=== PATIENT | female | born 1995 | race Two or more races ===

== ENCOUNTER 2017-03-08 08:06 | Emergency (ER) | payer OTHER ==
--- NOTE | 2017-03-08 08:11 | PDOC ---
History of Present Illness - General Stated Complaint: 8WKS PAIN Time Seen by Provider: 03/08/17 08:07 - History of Present Illness Initial Comments: 03/08/17 08:22 21 yo with h/o HTN, and asthma, who presents with epigatric pain. Pt. reports sharp, stable, unremitting, substernal pain with radiation to back at 0300. Endorses dark color stools for past 1 month. Started on Iron supplementation for anemia 1 week ago. Denies h/o PUD, UGI bleed, endosocpy. Last BM this AM with dark color. Denies NSAID use. + Nausea without vomiting, and tenesmus. + Denies vaginal bleeding, dysuria, hematuira, flank pain, diarrhea, constipation, fevers/chills, chest pain, SOB, lightheadedness, vertigo. Now homeless within 12 hours. [facility] visit 2 months ago for confirmation. Does not recall LMP. Reports h/o irregular menstrual cycles. Currently without [facility] physician. Denies alcohol, tobacco, or illicit drug use. Past History - Past Medical History Allergies/Adverse Reactions: Allergies Allergy/AdvReac Type Severity Reaction Status Date / Time broccoli Allergy Verified 03/08/17 08:15 raspberry [Raspberry] Allergy Swelling Verified 03/08/17 08:15 shellfish derived Allergy Verified 03/08/17 08:15 Home Medications: Ambulatory Orders Vit #108/Iron/FA [ One Tablet] 1 each PO DAILY 10/12/15 Diabetes: Yes (GESTATIONAL) HTN: Yes () Psychiatric Problems: Yes (anxiety, depression ptsd) - Reproductive History (#): 1 - Immunization History Immunization Up to Date: Yes - Suicide/Smoking/Psychosocial Hx Smoking History: Never smoked Have you smoked in the past 12 months: Yes Number of Cigarettes Smoked Daily: 10 'Breaking Loose' booklet given: 04/09/13 Hx Alcohol Use: No Drug/Substance Use Hx: No Substance Use Type: None Review of Systems - Review of Systems Comments:: 03/08/17 08:52 GENERAL/CONSTITUTIONAL: No fever or chills. No weakness. HEAD, EYES, EARS, NOSE AND THROAT: No change in vision. No ear pain or discharge. No sore throat.- CARDIOVASCULAR: No chest pain or shortness of breath RESPIRATORY: No cough, wheezing, or hemoptysis. GASTROINTESTINAL: + Abdominal pain and nausea, without vomiting. No diarrhea or constipation. GENITOURINARY: No dysuria, frequency, or change in urination. MUSCULOSKELETAL: No joint or muscle swelling or pain. No neck or back pain. SKIN: No rash NEUROLOGIC: No headache, vertigo, loss of consciousness, or change in strength/ sensation. ENDOCRINE: No increased thirst. No abnormal weight change HEMATOLOGIC/LYMPHATIC: + anemia, No easy bleeding, or history of blood clots. ALLERGIC/IMMUNOLOGIC: No hives or skin allergy. *Physical Exam - Physical Exam Comments: 03/08/17 08:52 GENERAL: Awake, alert, and fully oriented, in no acute distress HEAD: No signs of trauma, normocephalic, atraumatic EYES: PERRLA, EOMI, sclera anicteric, conjunctiva clear ENT:Hearing grossly normal, nares patent, oropharynx clear without exudates. Moist mucosa NECK: Normal ROM, supple, no lymphadenopathy, JVD, or masses LUNGS: No distress, speaks full sentences, clear to auscultation bilaterally HEART: Regular rate and rhythm, normal S1 and S2, no murmurs, rubs or gallops, peripheral pulses normal and equal bilaterally. ABDOMEN: Soft, + substernal ttp. normoactive bowel sounds. No guarding, no rebound. No masses. Neg plata sign. Neg [place] ttp. Pelvic exam: Normal appearing external genitalia. Cervical os closed with erythematous appearing external os. Absent bleeding. + White discharge. Neg CMT on bimanual exam. EXTREMITIES : Normal inspection, Normal range of motion, no edema. No clubbing or cyanosis. SKIN: Warm, Dry, normal turgor, no rashes or lesions noted. ED Treatment Course - LABORATORY CBC & Chemistry Diagram: 03/08/17 08:40 03/08/17 08:40 Medical Decision Making - Medical Decision Making 03/08/17 09:13 21 yo with h/o HTN, and asthma, who presents with acute onset of sharp , stable, unremitting, epigastria pain with radiation to back at 0300. Endorses dark color stools for past 1 month. Started on Iron supplementation for anemia 1 week ago. Denies h/o PUD, UGI bleed, endosocpy. Last BM this AM with dark color. Denies NSAID use. + Nausea without vomiting, and tenesmus. + Denies vaginal bleeding, dysuria, hematuria, flank pain, diarrhea, constipation , fevers/chills, chest pain, SOB, lightheadedness, vertigo. Now homeless within 12 hours. [facility] visit for [facility] care. No [facility] physician. Does not recall LMP. Reports h/o irregular menstrual cycles. Denies alcohol, tobacco, or illicit drug use. Physical exam with substernal ttp, and unremarkable pelvic exam. Patient history consistent for UGI bleed, given dark colored stools and recent iron requirement. Will obtain KYAW. Also consider ectopic n setting of abdominal pain in . Cholelithiasis vs. choleycystitis ( less likely). ED Course: CBC, CMP, Lipase, BHCG, FOBT UA Ranitidine 03/08/17 09:24 FOBT: Neg 03/08/17 09:24 UA: Neg HC CBC/CMP: Unremarkable 03/08/17 10:49 Janeyanitha Acharya at bedside during pelvic exam. 03/08/17 11:00 Transvaginal U/S: Single intrauterine gestation 7w1d , FHR of 137. Absent choleycystitis, CBD. Patient is stable for D/c with strict return precautions. Will advise to f/u with [facility] and establish care. 03/08/17 11:08 *DC/Admit/Observation/Transfer Diagnosis at time of Disposition: Abdominal pain affecting - Discharge Dispostion Disposition: HOME Condition at time of disposition: Stable Admit: No - Referrals Referrals: Domi Frank [Primary Care Provider] - - Patient Instructions Printed Discharge Instructions: DI for Abdominal Pain -- Early Additional Instructions: Please return to the emergency department with any new or worsening symptoms or concerns. Please follow up with [facility] within the next 1 week. - Post Discharge Activity - Attestations Physician Attestion: 03/08/17 11:04 I attest to the documentation in this note.
[2017-03-08 08:20] VITALS: BP 105/57; PULSE 95; TEMP 98.2; BMI 38.0
[2017-03-08] MEDS ORDERED: SODIUM CHLORIDE 1,000 ML IV STA (08:35)
[2017-03-08] MEDS ORDERED: FAMOTIDINE IV 20 MG/12 ML VIAL IVPUSH SCH (08:45)
[2017-03-08] MEDS ORDERED: FAMOTIDINE 20 MG/50 ML IVPB 20 MG/50 ML MG IVPB ONE (08:58)
[2017-03-08 08:59] LABS: BASOPHIL 0.3 % (0-2.0); EOSINOPHIL 0.9 % (0-4.5); MCH 31.9 pg (25.7-33.7); MCHC 34.5 g/dl (32.0-36.0); MEAN CELL VOLUME 92.6 fl (80-96); MEAN PLT VOLUME 8.5 fl (7.5-11.1); NEUTROPHILS 74.7 % (42.8-82.8); PLATELET COUNT 233 K/MM3 (134-434); RDW 12.8 % (11.6-15.6); WHITE BLOOD COUNT 10.5 K/mm3 (4.0-10.0)
[2017-03-08 09:00] LABS: URINE APPEARANCE SLCLOUDY; URINE BILIRUBIN NEGATIVE (NEGATIVE); URINE BLOOD NEGATIVE (NEGATIVE); URINE COLOR YELLOW; URINE GLUCOSE (UA) NEGATIVE (NEGATIVE); URINE KETONE NEGATIVE (NEGATIVE); URINE NITRITE NEGATIVE (NEGATIVE); URINE PROTEIN NEGATIVE (NEGATIVE); URINE UROBILINOGEN NEGATIVE mg/dL (0.2-1.0)
[2017-03-08] MEDS ORDERED: FAMOTIDINE IV 20 MG/12 ML VIAL IVPUSH ONE (09:00)
--- NOTE | 2017-03-08 09:14 | PDOC ---
Attending Attestation - Resident Resident Name: Gabriel Atwood - ED Attending Attestation I have performed the following: I have examined & evaluated the patient, The case was reviewed & discussed with the resident, I agree w/resident's findings & plan, Exceptions are as noted - HPI HPI: 03/08/17 09:11 21-year-old female recently confirmed at [facility] (formerly [facility]) unknown LMP because of history of irregular menses, reported history of anemia only ever require transfusions with her last delivery in 2015, started on iron one week ago because of presumed anemia in now presents with epigastric discomfort since 3 AM, ate Greek toast around midnight. Constant since onset, no vomiting or diarrhea, no cardiopulmonary complaints, reports two -month history of dark stool but no history of known gastritis/PUD or endoscopy. No excessive NSAID or alcohol use, no pelvic cramping or vaginal bleeding. - Physicial Exam PE: 03/08/17 09:12 Vital signs normal Well-appearing and ambulating Epigastric discomfort to palpation without guarding or rebound, radiates slightly to the right upper quadrant. No CVA tenderness. No suprapubic tenderness - Medical Decision Making 03/08/17 09:13 Patient seen and evaluated with the resident. I agree with the overall evaluation, assessment, and management with the following summary of visit: 21-year-old female unknown LMP with epigastric discomfort, no peritoneal findings on exam. Presentation could be most consistent with gastritis, rule out gallstones. Rule out ectopic as she has not had [facility] evaluation to date, otherwise no [employer] complaints or findings. Labs, urinalysis Right upper quadrant and pelvic ultrasound Antacid Reassess
[2017-03-08 09:30] LABS: ALBUMIN 3.6 g/dl (3.4-5.0); ANION GAP 7 (8-16); BILIRUBIN,TOTAL 0.2 mg/dL (0.2-1.0); CALCIUM 8.2 mg/dL (8.5-10.1); CO2 25 mmol/L (21-32); CREATININE 0.5 mg/dL (0.55-1.02); GLUCOSE,RANDOM 98 mg/dL (74-106); SGOT/AST 15 U/L (15-37); SGPT/ALT 29 U/L (12-78); TOT PROT 7.3 g/dl (6.4-8.2)
[2017-03-08 09:31] LABS: ALK PHOS 56 U/L (45-117)
[2017-03-08 17:54] LABS: URINE LEUK ESTERASE Negative (NEGATIVE)
== END 2017-03-08 12:13 | disposition home or self-care (01) ==
LOC: JER 08:06
PROC: 3E0337Z Introduction of Electrolytic and Water Balance Substance into Peripheral Vein, Percutaneous Approach (ICD-10-PCS; principal; 2017-03-08)
PROC: 3E033GC Introduction of Other Therapeutic Substance into Peripheral Vein, Percutaneous Approach (ICD-10-PCS; 2017-03-08)
DX: O26.891 Other specified pregnancy related conditions, first trimester (principal); R10.84 Generalized abdominal pain; O99.011 Anemia complicating pregnancy, first trimester; Z3A.01 Less than 8 weeks gestation of pregnancy
CPT/HCPCS: 36415; 76705-TC; 76817-TC; 80053; 81003; 82272; 83690; 84702; 85025; 86850; 86900; 86901; 96361; 96374; 99282-25

== ENCOUNTER 2017-05-03 11:48 | Emergency (ER) | payer OTHER ==
[2017-05-03 12:28] VITALS: BP 109/69; PULSE 95; TEMP 98.6; BMI 41.1
[2017-05-03] MEDS ORDERED: ACETAMINOPHEN 325 MG TABLET (FP) PO ONE (13:27)
[2017-05-03] MEDS ORDERED: ACETAMINOPHEN 325 MG TABLET (FP) ONE (13:30)
--- NOTE | 2017-05-03 13:32 | PDOC ---
History of Present Illness - General Chief Complaint: Injury Stated Complaint: CHEST PAIN Time Seen by Provider: 05/03/17 13:26 History Source: Patient Exam Limitations: No Limitations - History of Present Illness Initial Comments: 05/03/17 14:08 21 yr female with c/o pain to her sternal area after the door that she opened was broke and hit her in the chest. no sob no chest pain, pt states she is 15 weeks . Occurred: reports: just prior to arrival Severity: reports: mild Pain Location: reports: chest Method of Injury: Yes: direct blow Past History - Past Medical History Allergies/Adverse Reactions: Allergies Allergy/AdvReac Type Severity Reaction Status Date / Time broccoli Allergy Verified 05/03/17 12:24 raspberry [Raspberry] Allergy Swelling Verified 05/03/17 12:24 shellfish derived Allergy Verified 05/03/17 12:24 Home Medications: Ambulatory Orders Vit 108/Iron/Folic AC [ One Tablet] 1 each PO DAILY 10/12/15 COPD: No Diabetes: Yes (GESTATIONAL) HTN: Yes () Psychiatric Problems: Yes (anxiety, depression ptsd) - Reproductive History (#): 1 Para: 1 Therapeutic (s) & number: No - Immunization History Immunization Up to Date: Yes - Suicide/Smoking/Psychosocial Hx Smoking History: Never smoked Have you smoked in the past 12 months: Yes Number of Cigarettes Smoked Daily: 10 Information on smoking cessation initiated: No 'Breaking Loose' booklet given: 04/09/13 Hx Alcohol Use: No Drug/Substance Use Hx: Yes (ANEL) Substance Use Type: None Trauma Specific PMHX - Complaint Specific PMHX Arthritis: No Back Injury: No Neck Injury: No Hx Sacro Iliac Joint Dysfunction: No Review of Systems - Review of Systems Able to Perform ROS?: Yes Is the patient limited Uzbek proficient: No Constitutional: No: Symptoms Reported HEENTM: No: Symptoms Reported Respiratory: No: Symptoms reported Cardiac (ROS): No: Symptoms Reported ABD/GI: No: Symptoms Reported : No: Symptoms Reported Musculoskeletal: Yes: Symptoms Reported *Physical Exam - Vital Signs Last Vital Signs Temp Pulse Resp BP Pulse Ox 98.6 F 95 H 18 109/69 100 05/03/17 12:25 05/03/17 12:25 05/03/17 12:25 05/03/17 12:25 05/03/17 12:25 - Physical Exam General Appearance: Yes: Nourished, Appropriately Dressed HEENT: positive: EOMI, LD Neck: positive: Supple. negative: Tender Respiratory/Chest: positive: Lungs Clear, Normal Breath Sounds, Other (no bruising noted no crepitus to chest no shortness of breath ). negative: Chest Tender Cardiovascular: positive: Regular Rhythm, Regular Rate Gastrointestinal/Abdominal: positive: Normal Bowel Sounds, Soft Musculoskeletal: positive: Normal Inspection Extremity: positive: Normal Capillary Refill, Normal Inspection, Normal Range of Motion Integumentary: positive: Normal Color, Dry, Warm Neurologic: positive: Fully Oriented, Alert, Normal Mood/Affect, Normal Response , Motor Strength 08/07 Medical Decision Making - Medical Decision Making 05/03/17 14:11 21 yr female with pain to the middle of chest after a door opened up and hit her in the chest no shortness of breath. no bruising noted no abd pain tylenol given pt agrees with plan will return if worse, xray not indicated at this time as pt has no palpable pain no bruising noted or crepitus *DC/Admit/Observation/Transfer Diagnosis at time of Disposition: Contusion Qualifiers: Encounter type: initial encounter Contusion area: thoracic wall Contusion of thoracic wall detail: front wall of thorax Laterality: unspecified laterality Qualified Code(s): S20.219A - Contusion of unspecified front wall of thorax, initial encounter - Discharge Dispostion Disposition: HOME Condition at time of disposition: Good - Referrals - Patient Instructions Additional Instructions: apply ice every 4hrs for 20 minutes to the front area of chest where there is pain take tylenol 650mg every 4-6hrs for pain as needed Follow up with your doctor in 1-2 days return to ER for any worsening pain, shortness of breath or any other concerns - Post Discharge Activity
--- NOTE | 2017-05-05 08:10 | EKG ---
Test Reason : Blood Pressure : / mmHG Vent. Rate : 093 BPM Atrial Rate : 093 BPM P-R Int : 114 ms QRS Dur : 088 ms QT Int : 356 ms P-R-T Axes : 065 063 026 degrees QTc Int : 442 ms NORMAL SINUS RHYTHM NORMAL ECG WHEN COMPARED WITH ECG OF 17-OCT-2015 14:47, NO SIGNIFICANT CHANGE WAS FOUND Confirmed by JAVIER WANG MD ([id number]) on 05/05/2017 8:10:15 AM Referred By: Confirmed By:JAVIER WANG MD
== END 2017-05-03 13:37 | disposition home or self-care (01) ==
LOC: JERFT 11:48
DX: O99.89 Other specified diseases and conditions complicating pregnancy, childbirth and the puerperium (principal); S20.219A Contusion of unspecified front wall of thorax, initial encounter; Y93.89 Activity, other specified; Y92.89 Other specified places as the place of occurrence of the external cause; Y99.8 Other external cause status; Z3A.15 15 weeks gestation of pregnancy; W22.8XXA Striking against or struck by other objects, initial encounter
CPT/HCPCS: 93005; 93010; 99281-25

== ENCOUNTER 2021-11-03 06:37 | Inpatient (IN) | payer OTHER ==
[2021-11-03] MEDS ORDERED: morphine SULFATE/PF 1 MG/2 ML (2cc Syringe - QUVA) ONE (07:51)
[2021-11-03] MEDS ORDERED: ceFAZolin SODIUM 1 GM VIAL ONE (07:55)
[2021-11-03] MEDS ORDERED: ePHEDrine SULFATE 50 MG/1 ML AMPULE ONE (07:55)
[2021-11-03] MEDS ORDERED: PHENYLEPHRINE HCL 10 MG/1 ML SINGLE DOSE VIAL ONE (07:55)
[2021-11-03] MEDS ORDERED: SODIUM CHLORIDE 0.9% P/F 10 ML VIAL IJ ONE ×2 (07:56→09:02)
[2021-11-03 08:28] VITALS: RESP 18
[2021-11-03 08:31] LABS: BASO % 0.7 % (0-2.0); EOS % 0.8 % (0-4.5); HEMATOCRIT 38.3 % (32.4-45.2); HEMOGLOBIN 13.5 GM/dL (10.7-15.3); LYMPH % 17.4 % (8-40); MCH 36.6 pg (25.7-33.7); MCHC 35.2 g/dl (32.0-36.0); MEAN PLT VOLUME 10.1 fl (7.5-11.1); MONO % 10.7 % (3.8-10.2); NEUT % 70.4 % (42.8-82.8); PLATELET COUNT 258 10^3/uL (134-434); RBC 3.69 M/mm3 (3.60-5.2); RDW 13.2 % (11.6-15.6); WHITE BLOOD COUNT 9.1 K/mm3 (4.0-10.0)
[2021-11-03 08:34] LABS: INR 0.83 (0.83-1.09); PROTHROMBIN TIME (PATIENT) 9.5 SEC (9.7-13.0)
[2021-11-03 08:36] LABS: ACTIVATED PTT 27.2 SECONDS (25.2-36.5)
[2021-11-03] MEDS ORDERED: OXYTOCIN 10 UNITS/ML VIAL ONE ×2 (09:30→09:33)
[2021-11-03] MEDS ORDERED: ONDANSETRON 4 MG/2 ML VIAL ONE (09:33)
[2021-11-03] MEDS ORDERED: KETOROLAC TROMETHAMINE 30 MG/1 ML VIAL ONE (09:33)
[2021-11-03] MEDS ORDERED: OXYTOCIN 20 UNITS in 0.9% NS 20 UNIT/1,000 ML INFUS.BAG IV ONE ×2 (10:05→11:33)
[2021-11-03 10:30] LABS: METHADONE, UR NEGATIVE (NEGATIVE); PHENCYCLIDINE,URINE NEGATIVE (NEGATIVE); URINE BARBITURATES NEGATIVE (NEGATIVE); URINE BENZODIAZEPINES NEGATIVE (NEGATIVE)
[2021-11-03 10:31] LABS: COCAINE, UR NEGATIVE (NEGATIVE); OPIATES, URI NEGATIVE (NEGATIVE)
[2021-11-03] MEDS ORDERED: ACETAMINOPHEN 1000 MG/100 ML BAG IVPB PRN (10:34)
[2021-11-03] MEDS ORDERED: ACETAMINOPHEN 325 MG TABLET (FP) PO PRN ×2 (10:34→10:45)
[2021-11-03] MEDS ORDERED: IBUPROFEN 600 MG TABLET (FP) PO PRN ×2 (10:34→10:45)
[2021-11-03] MEDS ORDERED: ONDANSETRON 4 MG/2 ML VIAL IVPB PRN (10:34)
[2021-11-03] MEDS ORDERED: SIMETHICONE 80 MG TAB.CHEW (FP) PO PRN (10:34)
[2021-11-03] MEDS ORDERED: oxyCODONE HCL 5 MG TABLET PO PRN (10:34)
[2021-11-03] MEDS ORDERED: IBUPROFEN 800 MG/8 ML IJ IVPB PRN (10:34)
[2021-11-03] MEDS ORDERED: SENNOSIDES/DOCUSATE COMBO (SENNA PLUS) TABLET (UD) PO PRN (10:34)
[2021-11-03 10:40] LABS: URINE AMPHETAMINES POSITIVE (NEGATIVE)
[2021-11-03] MEDS ORDERED: morphine SULFATE/PF 1 MG/2 ML (2cc Syringe - QUVA) EP ONE (10:45)
[2021-11-03] MEDS ORDERED: OXYTOCIN 20 UNITS in 0.9% NS 20 UNIT/1,000 ML INFUS.BAG IV SCH (10:45)
[2021-11-03] MEDS ORDERED: ONDANSETRON 4 MG/2 ML VIAL IVPUSH PRN (10:45)
[2021-11-03 11:19] LABS: CALCIUM 7.6 mg/dL (8.5-10.1)
[2021-11-03 11:20] LABS: BLOOD UREA NITROGEN 12.7 mg/dL (7-18)
[2021-11-03 11:21] LABS: CORD HCO3 23.4 mmHg (20-29); CORD PCO2 48.5 mmHg (30-78); CORD pH 7.301 (7.14-7.44)
[2021-11-03 11:22] VITALS: BMI 28.2
[2021-11-03 11:23] LABS: CREATININE 0.5 mg/dL (0.55-1.3)
[2021-11-03 11:35] LABS: CORD BASE EXCESS -3.1 mmol/L (0-2); CORD HCO3 23.1 mmHg (20-29); CORD PCO2 45.6 mmHg (30-78); CORD pH 7.322 (7.14-7.44)
[2021-11-03 11:42] LABS: HIV INTERPRETATION NEGATIVE (NEGATIVE)
[2021-11-03 11:44] LABS: HEPATITIS B SURFACE AG MATERN NON-REACTIVE (NONREACTIVE)
[2021-11-03] MEDS ORDERED: CITRIC ACID/SODIUM CITRATE 30 ML UNIT-DOSE CUP PO ONE (12:10)
[2021-11-03 12:14] LABS: HIV INTERPRETATION NEGATIVE (NEGATIVE)
[2021-11-03] MEDS ORDERED: ELECTROLYTE-148 SOLN 1,000 ML IV SCH (12:15)
[2021-11-04 09:08] LABS: BASO % 0.2 % (0-2.0); EOS % 0.5 % (0-4.5); HEMATOCRIT 31.9 % (32.4-45.2); HEMOGLOBIN 11.3 GM/dL (10.7-15.3); LYMPH % 15.6 % (8-40); MCH 37.7 pg (25.7-33.7); MCHC 35.6 g/dl (32.0-36.0); MEAN CELL VOLUME 105.9 fl (80-96); MEAN PLT VOLUME 9.5 fl (7.5-11.1); MONO % 7.2 % (3.8-10.2); NEUT % 76.5 % (42.8-82.8); PLATELET COUNT 180 10^3/uL (134-434); RBC 3.01 M/mm3 (3.60-5.2); RDW 13.2 % (11.6-15.6); WHITE BLOOD COUNT 9.9 K/mm3 (4.0-10.0)
[2021-11-04 09:10] VITALS: BP 111/87; PULSE 116; TEMP 98.2
[2021-11-04] MEDS ORDERED: BISACODYL 10 MG SUPP.RECT RC PRN (10:35)
[2021-11-04 10:40] LABS: ANISOCYTOSIS 3+; MACROCYTOSIS 2+
== END 2021-11-04 08:35 | disposition left against medical advice (07) | DRG 540 ==
LOC: JDEL 06:37 → JLDR 07:25 → J3W 13:30
PROVIDERS: ADMIT Family Medicine; ATTEND Family Medicine
PROC: 10D00Z1 Extraction of Products of Conception, Low, Open Approach (ICD-10-PCS; principal; 2021-11-03)
DX: O34.211 Maternal care for low transverse scar from previous cesarean delivery (principal); O99.344 Other mental disorders complicating childbirth; F43.10 Post-traumatic stress disorder, unspecified; F32.A Depression, unspecified; Z3A.38 38 weeks gestation of pregnancy; Z37.0 Single live birth; Z53.29 Procedure and treatment not carried out because of patient's decision for other reasons
CPT/HCPCS: 36415; 36600; 59025; 80048; 80307; 82803; 85025; 85610; 85730; 86780; 86850; 86900; 86901; 87340; 87389; 88307-TC; C9803-CS; U0003; U0005